=== PATIENT | male | born 1980 | race Caucasian/White ===

== ENCOUNTER 2016-07-09 21:50 | Emergency (ER) | payer OTHER ==
[~2016-07-09] VITALS: Ht 180.3 cm; Wt 83.8 kg
[2016-07-09] MEDS ORDERED: AMOXICILLIN500 MG PO (22:34)
[2016-07-09] MEDS ORDERED: LORTAB 10-325 M1 TAB PO (22:37)
[2016-07-09 22:48] VITALS: BP 136/91
== END 2016-07-09 22:48 | disposition home or self-care (01) | DRG 159 ==
LOC: ED 21:50
DX: K04.7 Periapical abscess without sinus (principal); F17.210 Nicotine dependence, cigarettes, uncomplicated